=== PATIENT | female | born 1945 | race Caucasian/White ===

== ENCOUNTER 2023-03-15 09:38 | Emergency (ER) | payer MEDICARE, BC, SELFPAY ==
[2023-03-15 09:44] VITALS: BP 178/94; PULSE 90; RESP 24; TEMP 36.5; O2SAT 97
--- NOTE | 2023-03-15 10:11 | ED_ITS ---
HPI - SOB/Dyspnea General Time Seen by Provider: 10:11 Date Seen: 03/15/23 Chief Complaint: Shortness of Breath/Dyspnea Stated Complaint: Difficulty breathing, possible blood clot Time Seen by Provider: 03/15/23 10:11 Source: patient and RN notes reviewed Mode of arrival: ambulatory Limitations: no limitations History of Present Illness HPI Narrative: This 77-year-old female is coming in accompanied by her after reported referral from the clinic for dyspnea on exertion/shortness of breath. Parker feels that this is just her reactive airways disease. She denies any seasonal triggers for issues. Her and her relate a story of her working for [employer], being exposed to a remodel with water and mold within the facility. She started to become sick with that. She did end up requiring oxygen at home, was having desaturations down to 82% with activity. She denies any smoking history. Her oxygen really isn't helping her. She has been traveling home from [place] but admits the shortness of breath started before. She has not been sick with any cough or cold symptoms. She is feeling short of breath with dyspnea on exertion. She states she cannot use any meter dose inhalers as the propellant exacerbates her lungs with the chemical. Chemicals really bother her. She notably was upset as she was put in the stab 2 room due to the volume in the ED, cleaning was in the adjacent stab room. She felt the chemicals that they were cleaning with exacerbated her. She was 96% while on room air when I was talking to her. She does not feel that this is a blood clot, she states she cannot take oral prednisone as last time she took it she fell twice because of it. She states she usually gets a shot in the muscle of Solu-Medrol and usually feels better within 4 minutes of obtaining this injection. No chest pain, no GI symptoms with this. She does not want an IV, once the medicine IM. Is not seemingly very keen on workup for pulmonary emboli but will do some screening labs on her after discussion and agreement by patient. Have discussed nebulization with patient, she states she does not need it, has some of her own. She will use albuterol and then actually use lidocaine with it to prevent coughing from the inhalation. She has noted edema of her lower extremities which she will typically get, it does not seem like it is going down overnight however. No history of prior 0 thromboembolic disease, no history of congestive heart failure. MD elicited complaint: shortness of breath Related Data Home oxygen amount: as needed at night (3 L) Allergies Allergy/AdvReac Type Severity Reaction Status Date / Time bee venom protein (honey bee) Allergy Severe Anaphylaxis Verified 03/15/23 10:01 cephalexin [From Keflex] Allergy Mild Verified 03/15/23 10:01 iodine Allergy Mild Headache Verified 03/15/23 10:01 Latex, Natural Rubber Allergy Mild Dyspnea Verified 03/15/23 10:01 lisinopril Allergy Mild GI Upset Verified 03/15/23 10:01 tiagabine [From Gabitril] Allergy Mild Dizziness Verified 03/15/23 10:01 Prednisone Allergy Mild Dizziness Uncoded 03/15/23 10:01 Review of Systems Status of ROS: Reports: 6 or more systems reviewed and unremarkable except as noted in History and below PFSH PFSH Social History Smoking Status: Never smoker Do you use any of these nicotine containing products: None Second hand tobacco smoke exposure: No How often do you have a drink containing alcohol: never AUDIT-C Alcohol total score: 0 Non-prescribed substance use: denies use Exam Const: Vital Signs, click to edit/add: Vital Signs - 24 hr 03/15/23 09:44 03/15/23 10:20 Temperature 97.7 F Pulse Rate [Right Pulse Oximeter] 90 Respiratory Rate 24 Blood Pressure [Ri ght Upper Arm] 178/94 H Pulse Oximetry 97 98 Oxygen Delivery Me thod Room Air Documenting provider has reviewed patient's vital signs: yes Common normals: no apparent distress, average body habitus, oriented x3, no limitations, healthy appearing, alert and well nourished General appearance: cooperative, comfortable, well kempt and well developed HENMT: Common normals: normocephalic, head/scalp atraumatic, hearing grossly normal bilaterally, external ears normal, external nose normal, nasal mucous membranes and turbinates normal, moist oral mucous membranes, oropharynx normal and dentition normal Head and scalp: normocephalic and atraumatic Nose: external nose normal and nasal mucous membranes and turbinates normal Edge Bander Hand al ear: external ears normal Eye: Common normals: PERRL, EOMs intact bilaterally, conjunctivae normal and no scleral icterus Conjunctiva: conjunctiva(e) normal Pupil: PERRL Neck & C-Spine: Common normals: full ROM, no lymphadenopathy, supple, no meningeal signs, no JVD and thyroid normal Thyroid: thyroid normal Chest: Common normals: inspection of chest normal and palpation of chest normal Resp: Common normals: normal respiratory effort, no retractions, no use of accessory muscles and clear to auscultation bilaterally Auscultation: clear to auscultation bilaterally Other: Does seem to be dyspneic at times, speaks in shorter phrases, certainly is not speaking fluidly in long sentences. Cardio: Common normals: no JVD, regular rate, regular rhythm, S1 normal heart sound, S2 normal heart sound, no gallops, no clicks, no murmurs and no rub Rate: regular rate Rhythm: regular rhythm Heart sounds: S1 normal and S2 normal GI: Common normals: Normal to inspection, nondistended, normoactive bowel sounds present, soft to palpation, non-tender, no hepatosplenomegaly and no masses Palpation: soft and no hepatosplenomegaly Extremity: Common normals: normal to inspection and no calf tenderness Other: She has thickened lower extremities without any pitting edema, appear symmetric, no overlying skin changes. Neuro: Common normals: oriented x3 Sensorium/orientation: alert Meningeal signs: no meningeal signs Psych: Appearance: well kempt Course Course Hospital Course: Will have patient on cardiac monitoring and pulse oximetry here. Obtain baseline labs. Have ordered 125 mg IM Solu-Medrol for her. Right now she has elevated blood pressure in she states it is always elevated when she is having reactive airway disease exacerbation. Reevaluation(s) Reevaluation #1: Have reviewed with patient the D-dimer, it is well under her age limit. She agrees that she does not want a proceed with any further workup for thromboembolic disease which I believe is to be low risk for her given her current presentation and labs at this time. She is feeling better but once out of here, feels like the chemicals in the bleach is still triggering her. We reviewed normal chest x-ray, her proBNP would likely suggest that this is alternate etiology in is likely her reactive airways disease. There is no evidence of infection, no evidence of this being her heart. Time: 12:05 Vital Signs Vital signs: Initial Vital Signs Temperature 97.7 F 03/15/23 09:44 Temperature Source Temporal Artery Scan 03/15/23 09:44 Pulse Rate 90 03/15/23 09:44 Pulse Rhythm Regular 03/15/23 09:44 Pulse Strength 3+ Normal 03/15/23 09:44 Respiratory Rate 24 03/15/23 09:44 Blood Pressure 178/94 H 03/15/23 09:44 Blood Pressure Mean 122 H 03/15/23 09:44 Blood Pressure Position Sitting 03/15/23 09:44 Pulse Oximetry 97 03/15/23 09:44 Oxygen Delivery Method Room Air 03/15/23 09:44 Vital Signs Temperature 97.7 F 03/15/23 09:44 Pulse Rate 90 03/15/23 09:44 Respiratory Rate 24 03/15/23 09:44 Blood Pressure 178/94 H 03/15/23 09:44 Pulse Oximetry 97 03/15/23 09:44 Oxygen Delivery Method Room Air 03/15/23 09:44 Temperature 97.7 F 03/15/23 09:44 Pulse Rate 90 03/15/23 09:44 Respiratory Rate 24 03/15/23 09:44 Blood Pressure 178/94 H 03/15/23 09:44 Pulse Oximetry 98 03/15/23 10:20 Oxygen Delivery Method Room Air 03/15/23 09:44 MDM - SOB/Dyspnea Differential Diagnosis Differential diagnosis: Likely acute exacerbation of chronic obstructive airways disease, congestive heart failure, community acquired pneumonia, asthma with exacerbation and pulmonary embolism Lab Data Attestation: I reviewed the patient's lab results. Labs: Lab Results 03/15/23 Range/Units 10:40 WBC 10.93 (4.50-11.00) K/uL RBC 4.95 (4.00-5.20) m/uL Hgb 13.9 (12.0-16.0) gm/dL Hct 44.5 (33.0-51.0) % MCV 90 (80-100) fL MCH 28 (26-34) pg MCHC 31 L (32-36) gm/dL RDW Coeff of Paulo 13.1 (11.5-15.5) % Plt Count 313 (140-440) K/uL Neut % (Auto) 66.3 (42.0-72.0) % Lymph % (Auto) 25.0 (20-44) % Bowie % (Auto) 5.8 (0.0-11.0) % Eos % (Auto) 2.2 (0.0-7.0) % Baso % (Auto) 0.5 (0.0-3.0) % Neut # (Auto) 7.26 H (1.7-7.0) K/uL Lymph # (Auto) 2.73 (0.90-2.90) K/uL Bowie # (Auto) 0.60 (0.00-0.90) K/UL Eos # (Auto) 0.24 (0.00-0.50) K/uL Baso # (Auto) 0.05 (0.00-0.30) K/uL D-Dimer Quant (PE/DVT) 0.66 H (0.00-0.50) ug/ml Sodium 138 (135-149) mmol/L Potassium 4.1 (3.6-5.1) mmol/L Chloride 106 (96-114) mmol/L Carbon Dioxide 28 (20-32) mmol/L BUN 14 (7-30) mg/dL Creatinine 0.7 (0.5-1.5) mg/dL Estimated GFR 89 ml/min Glucose 106 (60-115) mg/dL Lactate 0.6 (0.5-1.9) mmol/L Calcium 9.2 (8.4-10.6) mg/dL Magnesium 2.0 (1.5-2.6) mg/dL C-Reactive Protein 0.9 (0.5-1.0) mg/dL NT-Pro-B Natriuret Pep 1780 pg/mL POC Troponin I 0.00 L (0.01-0.04) ng/ml Imaging Data Chest x-ray: Attestation: I have reviewed the pertinent imaging results. My impression: I see no acute pathology on my preliminary review of this portable chest x-ray. Radiologist's impression: Patient: PARKER SANDHU Facility:?[facility] Patient ID:?[id number] Site Patient ID:?[id number]. Site :?[id number] Study:?XRay Chest 1 VIEW PORTABLE-03/15/2023 10:30:50 AM Ordering Physician:?Suchomel-Roy Bessie Final Report: INDICATION: Shortness of breath. Dyspnea on exertion. TECHNIQUE: AP portable chest. FINDINGS: Clear lungs. Normal heart size and pulmonary vascularity. Normal included skeleton. IMPRESSION: Negative chest. Dictated by Jaime Bartholomew MD @ 03/15/2023 10:41:51 AM (Electronic Signature) ECG Data Attestation: I personally reviewed and interpreted this ECG as follows: (Sinus rhythm, 78 beats per minute. Flipped T-waves lead V1, no acute ST segment changes, no evidence of any ischemia. QT corrected 465 milliseconds.) ECG interpretation date: 03/15/23 ECG interpretation time: 10:30 Prior ECG tracings: not available for review Discharge Plan Discharge Clinical Impression: Exacerbation of reactive airway disease, Acute dyspnea Patient Disposition: Home, Self-Care Condition: Stable Instructions: Reactive Airways Disease (ED) Additional Instructions: Continue with your home nebulizations and medicines that you would typically use. If you have worsening shortness of breath, increased difficulty breathing, do recommend re-evaluation. You may need a longer course of steroids but have told me you do not tolerate oral steroids. Consideration for recurrent injection of steroids may need to be entertained if you do have ongoing symptoms. Discharge Diet: Regular Follow Up/Referrals: Migdalia Ornelas PA-C [Primary Care Provider] - Stand Alone Forms: [employer] Info Instructions
[2023-03-15 10:20] VITALS: O2SAT 98
--- NOTE | 2023-03-15 10:21 | CRLHL7_ITS ---
For Patients: As a result of the Century Cures Act, medical imaging exams and procedure reports are released immediately into your electronic medical record. You may view this report before your referring provider. If you have questions, please contact your health care provider. INDICATION: Shortness of breath. Dyspnea on exertion. TECHNIQUE: AP portable chest. FINDINGS: Clear lungs. Normal heart size and pulmonary vascularity. Normal included skeleton. IMPRESSION: Negative chest. Dictated by Jaime Bartholomew MD @ 03/15/2023 10:41:51 AM (Electronically Signed)
[2023-03-15 10:45] LABS: Lactate* 0.6 mmol/L (0.5-1.9)
[2023-03-15 10:48] LABS: Basophils Absolute Auto 0.05 K/uL (0.00-0.30); Basophils Percent Auto 0.5 % (0.0-3.0); Eosinophils Absolute Auto 0.24 K/uL (0.00-0.50); Eosinophils Percent Auto 2.2 % (0.0-7.0); Hematocrit 44.5 % (33.0-51.0); Hemoglobin* 13.9 gm/dL (12.0-16.0); Immature Granulocytes Abs Auto 0.02 K/uL (0.00-0.30); Immature Granulocytes Pct Auto 0.2 %; Lymphocytes Absolute Auto 2.73 K/uL (0.90-2.90); Mean Corpuscular HGB Conc 31 gm/dL (32-36); Mean Corpuscular Hemoglobin 28 pg (26-34); Mean Corpuscular Volume 90 fL (80-100); Monocytes Percent Auto 5.8 % (0.0-11.0); Neutrophils Absolute Auto 7.26 K/uL (1.7-7.0); Neutrophils Percent Auto 66.3 % (42.0-72.0); Platelet Count* 313 K/uL (140-440); RDW Coefficient of Variation % 13.1 % (11.5-15.5); Red Blood Count 4.95 m/uL (4.00-5.20); White Blood Count* 10.93 K/uL (4.50-11.00)
[2023-03-15 10:53] LABS: Slide Review Reflex No
[2023-03-15 11:14] LABS: D Dimer Quantitative* 0.66 ug/ml (0.00-0.50)
[2023-03-15 11:16] LABS: Chloride* 106 mmol/L (96-114); Potassium* 4.1 mmol/L (3.6-5.1); Sodium* 138 mmol/L (135-149)
[2023-03-15] MEDS: METHYLPREDNISOLONE SOD SUCC 62.5 MG/ML (125) 125 MG IM (11:16)
[2023-03-15 11:19] LABS: Carbon Dioxide* 28 mmol/L (20-32); Creatinine* 0.7 mg/dL (0.5-1.5); Estimated Glomerular Filt Rate 89 ml/min
[2023-03-15 11:20] LABS: Blood Urea Nitrogen* 14 mg/dL (7-30); Calcium* 9.2 mg/dL (8.4-10.6); Glucose* 106 mg/dL (60-115)
[2023-03-15 11:22] LABS: C Reactive Protein* 0.9 mg/dL (0.5-1.0)
[2023-03-15 11:29] LABS: NT Pro B Type NatriureticPept* 1780 pg/mL
== END 2023-03-15 12:15 | disposition home or self-care (01) ==
PROVIDERS: Emergency Provider Family Medicine; PCP Physician Assistant Medical
DX: J45.901 Unspecified asthma with (acute) exacerbation (principal); R06.00 Dyspnea, unspecified
CPT/HCPCS: 36415; 71045; 80048; 83605; 83735; 83880; 84484; 85025; 85379; 86140; 93005; 94761; 96372; 99284; 99285; J2930

== ENCOUNTER 2023-08-09 12:45 | Outpatient (RCR) | payer MEDICARE, BC, SELFPAY ==
[2023-03-16 12:34] LABS: Lactate Dehydrogenase* 225 U/L (120-246)
[2023-08-09 13:12] LABS: Basophils Absolute Auto 0.06 K/uL (0.00-0.30); Basophils Percent Auto 0.6 % (0.0-3.0); Eosinophils Absolute Auto 0.34 K/uL (0.00-0.50); Eosinophils Percent Auto 3.1 % (0.0-7.0); Hematocrit 47.9 % (33.0-51.0); Hemoglobin* 14.7 gm/dL (12.0-16.0); Immature Granulocytes Abs Auto 0.01 K/uL (0.00-0.30); Immature Granulocytes Pct Auto 0.1 %; Lymphocytes Absolute Auto 3.64 K/uL (0.90-2.90); Lymphocytes Percent Auto 33.7 % (20-44); Mean Corpuscular HGB Conc 31 gm/dL (32-36); Mean Corpuscular Hemoglobin 28 pg (26-34); Mean Corpuscular Volume 91 fL (80-100); Monocytes Percent Auto 4.9 % (0.0-11.0); Neutrophils Absolute Auto 6.23 K/uL (1.7-7.0); Neutrophils Percent Auto 57.6 % (42.0-72.0); Platelet Count* 314 K/uL (140-440); RDW Coefficient of Variation % 13.3 % (11.5-15.5); Red Blood Count 5.29 m/uL (4.00-5.20); White Blood Count* 10.81 K/uL (4.50-11.00)
[2023-08-09 13:13] LABS: Slide Review Reflex No
== END 2023-09-12 23:59 | disposition home or self-care (01) ==
LOC: CCIC 12:45
PROVIDERS: PCP Physician Assistant Medical; Referring Provider Physician Assistant Medical; Visit Provider Internal Medicine Hematology & Oncology
DX: D72.829 Elevated white blood cell count, unspecified (principal)
CPT/HCPCS: 36415; 83615; 85025; 88184; 88185; 99202; 99204; 99212; 99213

== ENCOUNTER 2024-07-25 09:30 | Outpatient (RCR) | payer MEDICARE, BC, SELFPAY ==
[2024-07-11 09:30] LABS: Basophils Absolute Auto 0.09 K/uL (0.00-0.30); Basophils Percent Auto 0.9 % (0.0-3.0); Eosinophils Absolute Auto 0.26 K/uL (0.00-0.50); Eosinophils Percent Auto 2.7 % (0.0-7.0); Hematocrit 49.2 % (33.0-51.0); Hemoglobin* 15.3 gm/dL (12.0-16.0); Immature Granulocytes Abs Auto 0.01 K/uL (0.00-0.30); Immature Granulocytes Pct Auto 0.1 %; Lymphocytes Absolute Auto 3.55 K/uL (0.90-2.90); Lymphocytes Percent Auto 36.4 % (20-44); Mean Corpuscular HGB Conc 31 gm/dL (32-36); Mean Corpuscular Hemoglobin 29 pg (26-34); Mean Corpuscular Volume 93 fL (80-100); Monocytes Percent Auto 5.7 % (0.0-11.0); Neutrophils Absolute Auto 5.29 K/uL (1.7-7.0); Neutrophils Percent Auto 54.2 % (42.0-72.0); Platelet Count* 288 K/uL (140-440); Red Blood Count 5.31 m/uL (4.00-5.20); White Blood Count* 9.76 K/uL (4.50-11.00)
[2024-07-11 09:45] LABS: Slide Review Reflex No
== END 2025-01-07 23:59 | disposition home or self-care (01) ==
LOC: CCIC 09:30
PROVIDERS: PCP Physician Assistant Medical; Referring Provider Physician Assistant Medical; Visit Provider Internal Medicine Hematology & Oncology
DX: D72.829 Elevated white blood cell count, unspecified (principal)
CPT/HCPCS: 36415; 85025; 88184; 88185; 99213; G0463